=== PATIENT | male | born 1960 | race Two or more races ===

== ENCOUNTER 2016-11-13 12:32 | Emergency (ER) | payer MEDICAID ==
[2016-11-13] MEDS ORDERED: LET GEL TOPICAL 1 EA SYR TP ONE (14:16)
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
[2016-11-13 14:43] VITALS: BP 139/79; PULSE 53; RESP 15; TEMP 98.8; O2SAT 97
== END 2016-11-13 14:44 | disposition home or self-care (01) ==
LOC: EDUNIT#
DX: S43.402A Unspecified sprain of left shoulder joint, initial encounter (principal); S16.1XXA Strain of muscle, fascia and tendon at neck level, initial encounter; S09.90XA Unspecified injury of head, initial encounter; S69.91XA Unspecified injury of right wrist, hand and finger(s), initial encounter; S40.812A Abrasion of left upper arm, initial encounter; S60.512A Abrasion of left hand, initial encounter; S00.511A Abrasion of lip, initial encounter; V18.4XXA Pedal cycle driver injured in noncollision transport accident in traffic accident, initial encounter; Y92.410 Unspecified street and highway as the place of occurrence of the external cause; Y99.8 Other external cause status; Y93.55 Activity, bike riding
CPT/HCPCS: L3807

== ENCOUNTER 2018-02-03 12:06 | Emergency (ER) | payer MEDICAID ==
--- NOTE | 2018-02-03 13:16 | EDPHY ---
H & P Stated Complaint: Pt has been told he needs R lower root canal. Pain. Time Seen by Provider: 02/03/18 13:13 HPI/ROS: CHIEF COMPLAINT: Dental pain HISTORY OF PRESENT ILLNESS: The patient presents the ED with complaints of right lower molar pain. The patient reportedly was seen by a dentist and given a prescription for antibiotics. He was not given pain medications. The patient denies any fever, trismus or neck stiffness. REVIEW OF SYSTEMS: A comprehensive 10 point review of systems is otherwise negative aside from elements mentioned in the history of present illness. Source: Patient - Personal History Current Tetanus/Diphtheria Vaccine: Yes - Medical/Surgical History Hx Asthma: No Hx Chronic Respiratory Disease: No Hx Diabetes: No Hx Cardiac Disease: No Hx Renal Disease: No Hx Cirrhosis: No Hx Alcoholism: No Hx HIV/AIDS: No Hx Splenectomy or Spleen Trauma: No Other PMH: TRANSGENDER-HYSTERECTOMY, BACK PAIN, TONSILLECTOMY - Social History Smoking Status: Never smoked - Physical Exam Exam: General Appearance: Alert, no distress Head: Atraumatic Eyes: Pupils equal, round, reactive ENT, Mouth: Dental sayra noted in the right posterior molar, no obvious abscess or trismus appreciated Neck: Nontender, trachea midline Respiratory: No chest wall tender, no subcutaneous air, lungs clear bilaterally Constitutional: Initial Vital Signs Temperature (C) 36.5 C 02/03/18 12:10 Heart Rate 71 02/03/18 12:10 Respiratory Rate 16 02/03/18 12:10 Blood Pressure 116/63 02/03/18 12:10 O2 Sat (%) 96 02/03/18 12:10 O2 Delivery Mode Room Air Allergies/Adverse Reactions: Penicillins Allergy (Unknown, Verified 02/03/18 12:10) gabapentin Allergy (Verified 02/03/18 12:10) Home Medications: Medication Instructions Recorded Baclofen [Baclofen 10 mg (RX)] 10 mg PO 07/30/15 traMADol 11/13/16 Medical Decision Making ED Course/Re-evaluation: The patient is given a single prescription for [place] for his pain management. The patient has been advised to follow up with Dental aid. Departure - Departure Disposition: Home, Routine, Self-Care Clinical Impression: Toothache Condition: Good Instructions: Toothache (ED) Additional Instructions: 1. Take Ibuprofen or Motrin 600 mg by mouth three times a day. 2. [place] as needed for severe pain. Referrals: HOUSTON ARGUETA [Other] - As per Instructions
[2018-02-03 13:37] VITALS: BP 120/74
== END 2018-02-03 13:37 | disposition home or self-care (01) ==
DX: K08.89 Other specified disorders of teeth and supporting structures (principal); Z79.2 Long term (current) use of antibiotics

== ENCOUNTER 2018-02-07 17:26 | Emergency (ER) | payer MEDICAID ==
[2018-02-07 17:31] VITALS: BP 122/77
--- NOTE | 2018-02-07 18:03 | EDPHY ---
HPI/HX/ROS/PE/MDM Narrative: CHIEF COMPLAINT: Right lower jaw pain HPI: The patient is a 57-year-old male who was seen in the emergency department 4 days ago for right lower jaw pain. At that time he was started on clindamycin and was given a Polaris prepack with instructions to follow up with his dentist/dental aide. The patient returns to the emergency department today stating that he is compliant with his antibiotics, has run out of his pain medicine and is still having pain. His neighbor who is a nurse said that he should go to the ER. Note, the patient attempted to follow up with his dentist but states is having difficulty with Medicaid issues and is not yet seen them. He has not bother to call dental aid because "I do not go there -they only see homeless people." Of note, the patient was recently homeless himself. REVIEW OF SYSTEMS: Aside from elements discussed in the HPI, a comprehensive 10-point review of systems was reviewed and is negative. PMH: Includes transgender. SOCIAL HISTORY:Denies drug abuse. Not currently homeless. PHYSICAL EXAM: General:Patient is alert, in no acute distress. Well-appearing. ENT:Poor dentition is noted with tooth tenderness in right lower molar region. Oropharynx normal. Normal voice, no drooling. Neck: Normal inspection. Full range of motion. Mild unilateral lymphadenopathy on right without fluctuance. FROM. Respiratory:No respiratory distress. Breath sounds normal bilaterally. Neuro: Oriented x3. Normal motor function. Normal sensory function. MDM: This patient presents with continued pain in the right lower jaw consistent with dental abscess. I see no sign of deep space infection. The patient is on appropriate antibiotics and is non-toxic. I see no need for emergent imaging at this time. The appropriate next step of care is dental evaluation, but this has been made more difficult by patient's refusal to contact [facility], which appears to be his only option for urgent dental care at this point. I encouraged him to follow-up and to return to ED if not able to. I see no evidence of FURRIER DESIGNER, Cong's Angina, tracheal obstruction, esophageal varices. General Time Seen by Provider: 02/07/18 17:42 Initial Vital Signs: Initial Vital Signs Temperature (C) 36.7 C 02/07/18 17:29 Heart Rate 68 02/07/18 17:29 Respiratory Rate 17 02/07/18 17:29 Blood Pressure 122/77 H 02/07/18 17:29 O2 Sat (%) 94 02/07/18 17:29 O2 Delivery Mode Room Air Allergies/Adverse Reactions: Penicillins Allergy (Unknown, Verified 02/07/18 17:28) gabapentin Allergy (Verified 02/07/18 17:28) Home Medications: Medication Instructions Recorded Abx Unknown 02/07/18 Departure - Departure Disposition: Home, Routine, Self-Care Clinical Impression: Dental abscess Condition: Good Instructions: Dental Abscess (ED) Additional Instructions: Follow-up with your dentist within the next 72 hours. Return to the ED for fever, worsening pain, difficulty swelling or other concerns. Referrals: ROGELIO ARGUETA [Other] - As per Instructions
== END 2018-02-07 18:13 | disposition home or self-care (01) ==
DX: K04.7 Periapical abscess without sinus (principal); Z79.2 Long term (current) use of antibiotics

== ENCOUNTER 2018-04-02 13:45 | Emergency (ER) | payer MEDICAID ==
[2018-04-02 13:50] VITALS: BP 111/64
--- NOTE | 2018-04-02 14:07 | EDPHY ---
H & P Time Seen by Provider: 04/02/18 13:53 HPI/ROS: CHIEF COMPLAINT: Right lower dental pain HISTORY OF PRESENT ILLNESS: Patient is a 57-year-old male with history of recurrent dental pain complaining of 1 week of worsening lower dental pain. He has had no fever, trouble swallowing, facial swelling. Was taking Naprosyn until a few days ago when he where an of this prescription. He is taking no other pain medication. Currently has no health insurance so was not following up with his dentist but does expect to have health insurance agrees to see a dentist in the next 2 months. ROS As detailed in HPI Smoking Status: Never smoked Physical Exam: General: Alert and oriented. Nontoxic appearing. No acute distress. Afebrile HEENT: Pupils PERRLA. No oral lesions. No gingival erythema or drainable abscess. No facial swelling. No tongue elevation. Cardiopulmonary: Regular rate and rhythm. No lower extremity edema Skin: [place] warm and dry. No lesions. Muscle skeletal: Moving all 4 extremities. Equal strength in upper extremities and lower extremities. Ambulatory. Constitutional: Initial Vital Signs Temperature (C) 36.7 C 04/02/18 13:46 Heart Rate 63 04/02/18 13:46 Respiratory Rate 16 04/02/18 13:46 Blood Pressure 111/64 04/02/18 13:46 O2 Sat (%) 97 04/02/18 13:46 O2 Delivery Mode Room Air Allergies/Adverse Reactions: gabapentin Allergy (Intermediate, Verified 04/02/18 13:50) suicidal thoughts Penicillins Allergy (Intermediate, Verified 04/02/18 13:50) Hives Home Medications: Medication Instructions Recorded Acetaminophen/Codeine 300/30Mg 1 each PO Q6 #8 tab 04/02/18 [Tylenol #3 (*)] Clindamycin HCl [Clindamycin] 300 mg PO TID #21 cap 04/02/18 Naproxen Sodium [Naproxen Sodium 500 mg PO 04/02/18 ER] Naproxen [Naprosyn] 500 mg PO BID #30 tablet 04/02/18 Medical Decision Making ED Course/Re-evaluation: History and exam are most consistent with chronic dental infection causing dental pain. He started on antibiotics, anti-inflammatories and given a small prescription for pain medication. No evidence of osteomyelitis, dental abscess , Cong's angina, meningitis. Departure - Departure Disposition: Home, Routine, Self-Care Clinical Impression: Pain, dental, Dental caries Condition: Good Instructions: Toothache (ED) Referrals: ROGELIO TINEO [Other] - As per Instructions Prescriptions: Acetaminophen/Codeine 300/30Mg [Tylenol #3 (*)] 1 each PO Q6 #8 tab Clindamycin HCl [Clindamycin] 300 mg PO TID #21 cap Naproxen [Naprosyn] 500 mg PO BID #30 tablet
--- NOTE | 2018-04-05 16:09 | ASMTCMCOM ---
CM Note CM Note Notes: CM received message from Patient bilingual call center representative regarding patient calling for dental concerns after recent ED visit. Chart reviewed from ED visit on 04/02/18. ML on patient's VM with CM call back number and information (address and phone number) for [facility] in [place] CM encouraged patient to call back with questions and/or if he would like ED report faxed to dental provider Date Signed: 04/05/2018 04:07 PM Electronically Signed By:Kary Snyder RN
== END 2018-04-02 14:34 | disposition home or self-care (01) ==
DX: K08.89 Other specified disorders of teeth and supporting structures (principal); Z79.2 Long term (current) use of antibiotics

== ENCOUNTER 2018-05-21 20:46 | Emergency (ER) | payer MEDICAID ==
--- NOTE | 2018-05-21 21:47 | EDPHY ---
H & P Stated Complaint: left foot pain Time Seen by Provider: 05/21/18 21:12 HPI/ROS: HPI: This is a 57-year-old male who presents with Chief Complaint: Foot pain Location: Left foot Quality: Pain Duration: Several days Signs and Symptoms: No bleeding, no radiation, no numbness, no weakness, no tingling, no incontinence, no decreased range of motion, no swelling, no skin color changes, no fever Timing: Acute Severity: Moderate Context: Patient is transgender, status post hysterectomy, James patient, presents with several day history of bottom of his left foot pain and concern for foreign body. 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 He reports that when he steps on his foot he feels like there is something caught in his foot. Denies any skin color changes, redness, discharge. Modifying Factors: None Comment: ROS: A comprehensive 10 system review of systems is otherwise negative aside from elements mentioned in the history of present illness. MEDICAL/SURGICAL/SOCIAL HISTORY: Medical/Surgical history: TRANSGENDER-HYSTERECTOMY, BACK PAIN, TONSILLECTOMY, breast removal, clavicle plate, dental caries Social history: Employed, never smoked CONSTITUTIONAL: Well-developed, well-nourished, adult male, awake and alert, no obvious distress HEENT: Atraumatic and normocephalic. NECK: supple, no midline tenderness Cardiovascular: Normal S1/S2, regular rate, regular rhythm, without murmur rub or gallop. PULMONARY/CHEST: Symmetrical and nontender. Clear to auscultation bilaterally. Good air movement. No accessory muscle usage. ABDOMEN: Soft, nondistended, nontender. EXTREMITIES: 2/2 pulses, strength 5/5, left foot plantar aspect shows small pinpoint area that is rough to touch but no surrounding erythema, induration, fluctuance, discharge. No heel pain. Left Ankle: Plantar flexion to 50, dorsiflexion to 20. Foot inversion to 35 degree. No tenderness/swelling Anterior talofibular ligament. No tenderness/swelling Calcaneofibular ligament , no tenderness/swelling posterior talofibular ligament, no tenderness/swelling posterior inferior tibiofibular ligament. Achilles tendon intact. DIP/PIP/MCP flexion/extension intact with good light touch sensation. no deformities, no clubbing, no cyanosis or edema. NEUROLOGICAL: no focal neuro deficits. GCS 15. Light touch sensation intact. SKIN: Warm and dry, no erythema. no rash. Good capillary refill. Source: Patient Exam Limitations: No limitations - Personal History Current Tetanus/Diphtheria Vaccine: Yes Current Tetanus Diphtheria and Acellular Pertussis (TDAP): Yes - Medical/Surgical History Hx Asthma: No Hx Chronic Respiratory Disease: No Hx Diabetes: No Hx Cardiac Disease: No Hx Renal Disease: No Hx Cirrhosis: No Hx Alcoholism: No Hx HIV/AIDS: No Hx Splenectomy or Spleen Trauma: No Other PMH: TRANSGENDER-HYSTERECTOMY, BACK PAIN, TONSILLECTOMY, breast removal, clavicle plate. dental caries - Social History Smoking Status: Never smoked Constitutional: Initial Vital Signs Temperature (C) 36.9 C 05/21/18 20:48 Heart Rate 63 05/21/18 20:48 Respiratory Rate 16 05/21/18 20:48 Blood Pressure 118/69 05/21/18 20:48 O2 Sat (%) 97 05/21/18 20:48 O2 Delivery Mode Room Air Allergies/Adverse Reactions: gabapentin Allergy (Intermediate, Verified 05/21/18 20:51) suicidal thoughts Penicillins Allergy (Intermediate, Verified 05/21/18 20:51) Hives Home Medications: Medication Instructions Recorded Naproxen [Naprosyn] 500 mg PO BID #30 tablet 04/02/18 Cephalexin [Keflex (*)] 500 mg PO TID #21 cap 05/21/18 Medical Decision Making Procedures: Procedure: Splint placement. A left for postoperative shoe and crutches were applied by the Emergency Room mine technician. After application of the splint I returned and re-examined the patient. The splint was adequately immobilizing the joint and distal to the splint the patient's circulation and sensation was intact. ED Course/Re-evaluation: Vital signs reviewed and stable upon arrival. No foreign body appreciated. Left foot x-ray my read shows no foreign body, no fracture, no dislocation. Placed in postop shoe, crutches, given Keflex, podiatry follow-up No signs of neurovascular compromise/tenting of skin/compartment syndrome/ extremities and joints examined above and below area of concern and are neurovascularly intact/cellulitis. This patient was seen under the supervision of my secondary supervising physician. I evaluated care for this patient independently. Discussed this patient with Dr. Garcia who did not see the patient. Differential Diagnosis: Differential diagnosis includes but is not limited to foreign body, cellulitis, plantar fasciitis, tendinitis, abscess. Departure - Departure Disposition: Home, Routine, Self-Care Clinical Impression: Swelling of left foot Condition: Good Instructions: Plantar Fasciitis (ED), Soft Tissue Foreign Body (ED) Additional Instructions: Wear the postop shoe and use crutches to aid ambulation until pain free. Wash the site daily with mild soap and water; then pat dry. Take Tylenol 650 mg every 4 hours and/or Ibuprofen 600 mg every 8 hours with food as needed for pain. Take antibiotic as directed until complete. Do not skip a dose. Apply warm compresses to the bottom of her feet several times per day for the next 2-3 days. Follow up with Podiatry in 5-7 days at which time they will evaluate and recommend with you if conservative management versus further imaging is indicated. The x-rays obtained in the emergency department today demonstrate no evidence of an obvious fracture/foreign body. Referrals: ROGELIO ARGUETA DR [Other] - As per Instructions Alfred Miranda DPM [Doctor of Podiatric Medicine] - As per Instructions Stand Alone Forms: Work Excuse Prescriptions: Cephalexin [Keflex (*)] 500 mg PO TID #21 cap
[2018-05-21] MEDS ORDERED: CEPHALEXIN 500MG PREPACK#4 BTL TAKEHOME ONE (21:48)
[2018-05-21 22:41] VITALS: BP 104/69
== END 2018-05-21 22:40 | disposition home or self-care (01) ==
DX: M79.89 Other specified soft tissue disorders (principal); M79.672 Pain in left foot
CPT/HCPCS: L4386